=== PATIENT | male | born 1960 | race Hispanic/Latino ===

== ENCOUNTER 2016-08-13 03:42 | Emergency (ER) | payer OTHER ==
[2016-08-13 04:25] LABS: ABSOLUTE BASOPHIL COUNT 0 /CUMM (0.0-0.2); ABSOLUTE EOSINOPHIL COUNT 0 /CUMM (0.0-0.7); ABSOLUTE GRANULOCYTE CT 6.1 /CUMM (1.4-6.5); ABSOLUTE LYMPH COUNT 0.5 /CUMM (1.2-3.4); ABSOLUTE MONOCYTE COUNT 0.1 /CUMM (0.10-0.60); BASOPHIL % 0.1 % (0.0-2.0); EOSINOPHIL % 0.2 % (0-5); GRANULOCYTE % 91.8 % (42.2-75.2); HEMATOCRIT 37.2 % (42-52); MEAN CORPUSCULAR HGB 32.5 PG (27.0-31.0); MEAN CORPUSCULAR HGB CONC 34.7 G/DL (33.0-37.0); MEAN CORPUSCULAR VOLUME 93.8 FL (80.0-94.0); MEAN PLATELET VOLUME 6.3 FL (7.4-10.4); PLATELET COUNT 185 /CUMM (130-400); RBC DISTRIBUTION WIDTH 12.7 % (11.5-14.5); RED BLOOD CELL CT 3.97 /CUMM (4.70-6.10); WHITE BLOOD CELL COUNT 6.7 /CUMM (4.8-10.8)
--- NOTE | 2016-08-13 04:45 | ED GI/GU/ABDOMINAL COMPLAINT ---
History of Present Illness General Chief Complaint: Abdominal Pain/Flank Pain Stated Complaint: ABD PAIN Source: patient Exam Limitations: no limitations Vital Signs & Intake/Output Vital Signs & Intake/Output Vital Signs Date Time Temp Pulse Resp B/P B/P Pulse O2 O2 Flow FiO2 Mean Ox Delivery Rate 08/13 1141 99.1 106 14 148/84 96 Room Air 08/13 0829 99.2 99 14 98/55 97 Room Air 08/13 0541 97.3 89 18 140/84 96 08/13 0355 96.2 96 18 155/80 99 Allergies Coded Allergies: No Known Allergies (08/13/16) Reconcile Medications Metformin HCl 500 MG TABLET 500 MG PO BID DIABETES (Reported) Triage Note: PT TO ED C/O ABDOMINAL PAIN, NAUSEA AND DIARRHEA SINCE 9 PM AFTER EATING SPICY CHICKEN AND 9 BEERS. PT DENIES CP, SOB, FEVER AND CHILLS Triage Nurses Notes Reviewed? yes Onset: Gradual Duration: hour(s):, waxing and waning Timing: recent history Quality/Severity: cramping Location: generalized abdomen Radiation: no radiation Activities at Onset: none Prior Abdominal Problems: none Modifying Factors: Worsens With: defecating, vomiting. Associated Symptoms: abdominal pain HPI: 56-year-old gentleman history of diabetes presents with 3-4 hours of diffuse crampy abdominal pain nausea vomiting and diarrhea. He states that prior to going to bed at approximately 9 or 10:00, he drank 9 beers and had a large amount of spicy chicken wings. At 2:00 this morning he developed nauesea for diarrhea. He states that he had has had 4 diarrheal stools since he awoke. Similarly, he has had 3-4 episodes of vomiting. He has no fever chills shortness of breath phlegm production. He is otherwise well and has no other concerns. (PABLO CHAUHAN,HANNY Peñaloza) Past History Travel History Traveled to [place] past 21 day No Medical History Any Pertinent Medical History? see below for history Surgical History Surgical History: none Psychosocial History What is your primary language [place] Tobacco Use: Never used Family History Hx Contributory? No (PABLO CHAUHAN,HANNY Peñaloza) Review of Systems Review of Systems Constitutional: Reports: no symptoms. EENTM: Reports: no symptoms. Respiratory: Reports: no symptoms. Cardiovascular: Reports: no symptoms. GI: Reports: no symptoms. Genitourinary: Reports: no symptoms. Musculoskeletal: Reports: no symptoms. Skin: Reports: no symptoms. Neurological/Psychological: Reports: no symptoms. Hematologic/Endocrine: Reports: no symptoms. Immunologic/Allergic: Reports: no symptoms. All Other Systems: Reviewed and Negative (PABLO CHAUHAN,HANNY Peñaloza) Physical Exam Physical Exam General Appearance: well developed/nourished, no apparent distress Head: atraumatic, normal appearance, active bleeding Eyes: Bilateral: normal appearance. Ears, Nose, Throat, Mouth: hearing grossly normal, dental injury, moist mucous membrane Neck: normal inspection, supple, full range of motion Respiratory: normal breath sounds, chest non-tender, no respiratory distress Gastrointestinal: normal bowel sounds, soft, non-tender, no organomegaly Back: normal inspection, normal range of motion Core Measures ACS in differential dx? No Severe Sepsis Present: No Septic Shock Present: No (PABLO CHAUHAN,HANNY Peñaloza) Progress Differential Diagnosis: reflux versus gastritis versus food poisoning Plan of Care: Orders Procedure Date/time Status HEPATIC FUNCTION PANEL 08/13 0645 Complete BASIC METABOLIC PANEL 08/13 0645 Complete ETHANOL 08/13 0403 Complete TROPONIN LEVEL 08/13 0346 Complete LIPASE 08/13 0346 Complete HEPATIC FUNCTION PANEL 08/13 0346 Complete CBC WITHOUT DIFFERENTIAL 08/13 0346 Complete BASIC METABOLIC PANEL 08/13 0346 Complete AMYLASE 08/13 0346 Complete EKG 08/13 0346 Active Laboratory Tests 08/13/16 0656: Anion Gap 14, Estimated GFR > 60, BUN/Creatinine Ratio 16.7, Glucose 143 H, Calcium 7.5 L, Total Bilirubin 2.1 H, Direct Bilirubin 1.7 H, AST 377 H, ALT 225 H, Alkaline Phosphatase 81, Total Protein 5.7 L, Albumin 3.1 L 08/13/16 0430: Anion Gap 13, Estimated GFR > 60, BUN/Creatinine Ratio 20.0, Glucose 128 H, Calcium 7.8 L, Total Bilirubin 1.7 H, Direct Bilirubin 1.3 H, AST 266 H, ALT 149 H, Alkaline Phosphatase 85, Troponin I < 0.01, Total Protein 6.0 L, Albumin 3.3 L, Amylase 102, Lipase 182, Serum Alcohol 73.0 08/13/16 0403: CBC w Diff MAN DIFF ORDERED, RBC 3.97 L, MCV 93.8, MCH 32.5 H, RDW 12.7, MPV 6.3 L, Gran % 91.8 H, Lymphocytes % 7.1 L, Monocytes % 0.8 L, Eosinophils % 0.2, Basophils % 0.1, Absolute Granulocytes 6.1, Segmented Neutrophils 82 H, Band Neutrophils 2, Absolute Lymphocytes 0.5 L, Lymphocytes 16 L, Absolute Monocytes 0.1 L, Absolute Eosinophils 0, Absolute Basophils 0, Platelet Estimate ADEQUATE, Polychromasia 1+, Ovalocytes FEW, PUBS MCHC 34.7, Fld Total RBCs Counted 100 08/13/16 0358: Serum Alcohol Cancelled Diagnostic Imaging: Viewed by Me: CT Scan. Discussed w/RAD: CT Scan. Radiology Impression: abd/pelvic ct.... correlate with cholecystitis Initial ED EKG: normal axis, normal intervals, normal p-waves, normal QRS complex, normal sinus rhythm Hand-Off Endorsed To: NICKOLAS DORMAN MD Endorsed Time: 0700 Pending: other (re-evaluation), ultrasound Comments: PATIENT: LUIS ANGEL HARKINS PRESENT AGE: 56 PATIENT ACCOUNT NO: [id number] : 61 LOCATION: [facility] ORDERING PHYSICIAN: HANNY OTT MD SERVICE DATE: 08/13/16 EXAM TYPE: CAT - CT ABD & PELVIS W IV CONTRAST EXAMINATION: CT ABDOMEN AND PELVIS WITH CONTRAST CLINICAL INFORMATION: Abdominal pain with elevated LFTs. COMPARISON: None available. TECHNIQUE: Multidetector volumetric imaging was performed of the abdomen and pelvis before and after the IV administration of 32 mL of Optiray 320 intravenous contrast. Sagittal and coronal reformatted images were obtained on the technologist's workstation. FINDINGS: The lung bases are clear. Liver attenuation is heterogeneous and nonspecific. There is no nodular liver contour and no discrete intrahepatic lesions are identified. The spleen, adrenal glands, and pancreas are normal. Cholelithiasis. Gallbladder wall appears slightly thickened. Correlation with ultrasound recommended to assess for signs of acute cholecystitis. The kidneys exhibit symmetric nephrograms without evidence of hydronephrosis or nephrolithiasis. No focal renal lesions. Nonspecific perinephric stranding bilaterally. No radiopaque calculi and no hydroureteronephrosis. The large and small bowel are normal in caliber without evidence of mechanical obstruction. No focal inflammatory changes adjacent to the large or the small bowel. The appendix is normal. There is no free air and there is no intra-abdominal free fluid. No mesenteric or retroperitoneal adenopathy. The pelvic viscera are normal. No pelvic adenopathy. No free fluid within the pelvis. There are no acute osseous abnormalities. No significant soft tissue abnormality. IMPRESSION: - Cholelithiasis. Gallbladder wall appears slightly thickened. Correlation with ultrasound recommended to assess for signs of acute cholecystitis. The common bile duct and intrahepatic bile ducts are not enlarged. - Liver attenuation is heterogeneous and nonspecific. There is no nodular liver contour and no discrete intrahepatic lesions are identified. - Nonspecific perinephric stranding bilaterally. No radiopaque calculi and no hydroureteronephrosis. DICTATED BY: NICKOLAS CHAVEZ MD DATE/TIME DICTATED:08/13/16600 SHIP FITTER:BRITTANY DATE/TIME TRANSCRIBED:08/13/16600 CONFIDENTIAL, DO NOT COPY WITHOUT APPROPRIATE AUTHORIZATION. <Electronically signed in Other Vendor System> SIGNED BY: NICKOLAS CHAVEZ MD 08/13/16610 (PABLO CHAUHAN,HANNY Peñaloza) Radiology Impression: PATIENT: LUIS ANGEL HARKINS PRESENT AGE: 56 PATIENT ACCOUNT NO: [id number] : 62 LOCATION: [facility] ORDERING PHYSICIAN: HANNY OTT MD SERVICE DATE: 08/13/16 EXAM TYPE: US - US- LIMITED ABDOMEN EXAMINATION: US ABDOMEN LIMITED CLINICAL INFORMATION: Abnormal LFTs. COMPARISON: Earlier CT scan same day TECHNIQUE: Real-time imaging of the right upper quadrant abdominal viscera. FINDINGS: PANCREAS: Not well-visualized. LIVER: Diffuse increased echogenicity. No focal lesion or biliary dilatation. GALLBLADDER: Gallbladder wall is thickened with stones. There is small amount of pericholecystic fluid. Mild distention. Mild vascularity within the wall. Gallbladder wall measures up to 11 mm COMMON BILE DUCT: Not demonstrated RIGHT KIDNEY: Normal. No hydronephrosis. No renal calculi or focal parenchymal lesions. The kidney measures 10.8 cm in maximum dimension. FREE FLUID: None. IMPRESSION: Gallbladder wall thickening with stones. Appearance is suspicious for acute cholecystitis. Correlate clinically. Pancreas and biliary tree not demonstrated. DICTATED BY: FAWN SIERRA MD DATE/TIME DICTATED:08/13/16826 SHIP FITTER:HEARN DATE/TIME TRANSCRIBED:08/13/16826 CONFIDENTIAL, DO NOT COPY WITHOUT APPROPRIATE AUTHORIZATION. <Electronically signed in Other Vendor System> SIGNED BY: FAWN SIERRA MD 08/13/16 0835 Comments: 08/13/2016 12:38:01 PM surgical PA awaiting feedback from surgeon regarding patient's disposition. 08/13/2016 10:18:37 AM patient signed out to me by Dr. Ott. Ultrasound suggestive of acute cholecystitis. I am paging both surgery and GI given the patient's elevation in liver enzymes and bilirubin levels. 08/13/2016 10:50:22 AM I have discussed this patient's case with Dr. Tai who feels that the patient's elevations in bilirubin and transaminases are likely alcohol induced. However he recommends an MRCP. He feels that this is unlikely to be a common duct stone. I have just discussed this patient's case with Dr. Willson who is scrubbed in the operating room. I've also discussed this patient's case with the surgical PA. Rocephin and Flagyl has been ordered. At this point the patient is comfortable and preparing to go to MRI. 08/13/2016 2:42:55 PM according to the surgical PA, Dr. Willson does not feel that this patient has acute cholecystitis and instead attributes the changes to alcoholism. Although I still feel the patient could have cholecystitis based on his presentation and imaging studies, the patient has refused to be admitted. Despite a lengthy discussion with this patient via a aerobics teacher regarding the possibility of cholecystitis peritonitis gallbladder rupture sepsis and other severe complications, and after notifying this patient of his low sodium level, he is decided to leave the emergency department in order to return back to [place] and continue working. I believe he is capable of medical decision making at this time and will be signed out AGAINST MEDICAL ADVICE. I'll call him with antibiotics and advised that he free water restrict until follow-up. (ERVIN CHAUHAN,NICKOLAS Murray) Departure Departure Condition: Stable Departure Forms: Customer Survey General Discharge Information (PABLO CHAUHAN,HANNY Peñaloza) Departure Disposition: LEFT AGAINST MEDICAL ADVICE Clinical Impression Primary Impression: Cholecystitis, acute Secondary Impressions: Hyponatremia Additional Instructions: Cipro and Flagyl as prescribed. Follow up with a physician tomorrow for reevaluation. Your leaving AGAINST MEDICAL ADVICE, you may have an infected gallbladder that could result in an overwhelming infection and . In addition you have a low sodium level which places your risk of weakness seizures and altered mental status. In addition to taking the antibiotics prescribed, restrict your fluid intake to 1 L per day. Return immediately to the emergency department if any concerns or sudden worsening. Please note that there might be incidental findings in your evaluation that are unrelated to the current emergency department visit. Please notify your primary care doctor about this emergency department visit in order to obtain and review all of the testing performed so that these incidental findings can be monitored as needed. If you had an x-ray performed, please understand that some fractures may not be seen on the initial set of x-rays. If your symptoms persist you might need a repeat set of x-rays to check for such a fracture. If you had a laceration evaluated, please understand that foreign bodies such as glass or wood may not be visible to the naked eye or on plain x-rays. If the wound becomes red, swollen, increasingly more painful or if there is any drainage from the wound, please have it reevaluated by a physician for the possibility of a retained foreign body. Thank you for choosing the [facility] Emergency Department for your care. It was a pleasure to serve you today. Nickolas Dorman M.D. [facility] Prescriptions: Current Visit Scripts Ciprofloxacin HCl (Cipro) 1 TAB PO BID #20 TAB Metronidazole (Flagyl) 1 TAB PO Q6 #40 TAB (ERVIN CHAUHAN,NICKOLAS Murray)
[2016-08-13] MEDS ORDERED: METFORMIN HCL500 M3 PO (05:57)
--- NOTE | 2016-08-13 06:11 | CT SCAN REPORT ---
EXAMINATION: CT ABDOMEN AND PELVIS WITH CONTRAST CLINICAL INFORMATION: Abdominal pain with elevated LFTs. COMPARISON: None available. TECHNIQUE: Multidetector volumetric imaging was performed of the abdomen and pelvis before and after the IV administration of 32 mL of Optiray 320 intravenous contrast. Sagittal and coronal reformatted images were obtained on the technologist's workstation. FINDINGS: The lung bases are clear. Liver attenuation is heterogeneous and nonspecific. There is no nodular liver contour and no discrete intrahepatic lesions are identified. The spleen, adrenal glands, and pancreas are normal. Cholelithiasis. Gallbladder wall appears slightly thickened. Correlation with ultrasound recommended to assess for signs of acute cholecystitis. The kidneys exhibit symmetric nephrograms without evidence of hydronephrosis or nephrolithiasis. No focal renal lesions. Nonspecific perinephric stranding bilaterally. No radiopaque calculi and no hydroureteronephrosis. The large and small bowel are normal in caliber without evidence of mechanical obstruction. No focal inflammatory changes adjacent to the large or the small bowel. The appendix is normal. There is no free air and there is no intra-abdominal free fluid. No mesenteric or retroperitoneal adenopathy. The pelvic viscera are normal. No pelvic adenopathy. No free fluid within the pelvis. There are no acute osseous abnormalities. No significant soft tissue abnormality. IMPRESSION: - Cholelithiasis. Gallbladder wall appears slightly thickened. Correlation with ultrasound recommended to assess for signs of acute cholecystitis. The common bile duct and intrahepatic bile ducts are not enlarged. - Liver attenuation is heterogeneous and nonspecific. There is no nodular liver contour and no discrete intrahepatic lesions are identified. - Nonspecific perinephric stranding bilaterally. No radiopaque calculi and no hydroureteronephrosis.
--- NOTE | 2016-08-13 08:35 | ULTRASOUND REPORT ---
EXAMINATION: US ABDOMEN LIMITED CLINICAL INFORMATION: Abnormal LFTs. COMPARISON: Earlier CT scan same day TECHNIQUE: Real-time imaging of the right upper quadrant abdominal viscera. FINDINGS: PANCREAS: Not well-visualized. LIVER: Diffuse increased echogenicity. No focal lesion or biliary dilatation. GALLBLADDER: Gallbladder wall is thickened with stones. There is small amount of pericholecystic fluid. Mild distention. Mild vascularity within the wall. Gallbladder wall measures up to 11 mm COMMON BILE DUCT: Not demonstrated RIGHT KIDNEY: Normal. No hydronephrosis. No renal calculi or focal parenchymal lesions. The kidney measures 10.8 cm in maximum dimension. FREE FLUID: None. IMPRESSION: Gallbladder wall thickening with stones. Appearance is suspicious for acute cholecystitis. Correlate clinically. Pancreas and biliary tree not demonstrated.
[2016-08-13 11:41] VITALS: BP 148/84
--- NOTE | 2016-08-13 12:19 | MRI REPORT ---
EXAMINATION: MR ABDOMEN WITHOUT CONTRAST CLINICAL INFORMATION: Possible cholecystitis. Assess for biliary obstruction. Right upper quadrant pain and elevated LFTs. COMPARISON: Ultrasound and CT same day. TECHNIQUE: MR abdomen without contrast was obtained using routine sequences. MRCP. FINDINGS: It is reported that the patient could not tolerate the exam and it was curtailed without MRCP. On the submitted coronal, sagittal and axial T2 haste images, there is no gross biliary dilatation or evidence for choledocholithiasis. The CBD only measures 2 to 3 mm. Intrahepatic ductal radicals appear normal. There are trace pleural effusions at both bases. The gallbladder is acutely inflamed with tiny stones consistent with acute cholecystitis. There is minor nonspecific stranding about the retroperitoneum centered around the perinephric space without hydronephrosis. Pancreas and pancreatic duct normal. IMPRESSION: Limited curtailed exam as above demonstrating acute cholecystitis changes without definite biliary dilatation or choledocholithiasis.
--- NOTE | 2016-08-13 14:19 | Cons- Gastroenterology ---
General Information and HPI Consulting Request Date of Consult: 08/13/16 Requested By: Dr. Richar Dorman Reason for Consult: Increased LFTs, RUQ abdominal pain. US and ct scan showing cholecystitis. Source of Information: patient, old records Exam Limitations: no limitations History of Present Illness: Mr. Foster is a 56 year old male with a history of DM who presented to last night with complaints of RUQ pain that began last night. The patient states he had a mid epigastric abdominal pain which radiated to the right side and it came on acutely last night. He notes that he did drink about 9 beers last night, but it is unclear if he started drinking because of the pain or if the pain started after he began drinking. The pain was associated with 1 episode of bilious vomiting without hematemesis. He denies any burning epigastric pain or any heartburn and he has not had pain similar to this in the past. He denies having any fevers or chills. He reports having normal bowel movements without any bright blood per rectum, melena, diarrhea, constipation, or magali-colored stool. He is also without any changes in the color of his urine. On presentation to the emergency room he was afebrile and hemodynamically stable. He was noted to have moderately elevated liver function tests for which a CAT scan was performed which showed changes consistent with cholecystitis without biliary ductal dilatation. A follow-up ultrasound also suggested cholecystitis also without biliary ductal dilatation. Since his bilirubin was elevated an MRCP was also obtained which was limited as she did not tolerate it, but no obvious biliary ductal dilatation or choledocholithiasis was appreciated. The MR also showed changes of cholecystitis though. He was started on IV antibiotics and was also given IV antiemetics and he notes that his pain is now completely resolved. He has remained afebrile and hemodynamically stable since arrival to the emergency room. A surgical consult is pending. Allergies/Medications Allergies: Coded Allergies: No Known Allergies (08/13/16) Home Med List: Ciprofloxacin HCl (Cipro) 500 MG TABLET 1 TAB PO BID GALLBLADDER Metformin HCl 500 MG TABLET 500 MG PO BID DIABETES (Reported) Metronidazole (Flagyl) 500 MG TABLET 1 TAB PO Q6 GALLBLADDER Current Medications: Current Medications Sig/Puneet Start time Last Medication Dose Route Stop Time Status Admin Ceftriaxone Sodium 0 .STK-MED ONE 08/13 1045 DC .ROUTE Ceftriaxone Sodium 1,000 MG ONCE ONE 08/13 1030 DC 05/ IV 08/13 1031 1044 Diphenoxylate HCl/ 2.5 MG ONCE ONE 08/13 0500 DC 05 Atropine PO 08/13 0501 0456 Famotidine 0 .STK-MED ONE 08/13 0404 DC IV Famotidine 20 MG ONCE ONE 08/13 0400 DC 05/ IV 08/13 0401 0408 Metoclopramide HCl 0 .STK-MED ONE 08/13 0735 DC .ROUTE Metoclopramide HCl 10 MG ONCE ONE 08/13 0730 DC 08/13 IV 08/13 0731 0733 Metronidazole 500 MG ONCE ONE 08/13 1030 DC 08/13 N/A 1 UNIT IV 08/13 1129 1044 Ondansetron HCl 0 .STK-MED ONE 08/13 0404 DC .ROUTE Ondansetron HCl 4 MG ONCE ONE 08/13 0400 DC / IV 08/13 0401 0408 Promethazine HCl 0 .STK-MED ONE 08/13 0454 DC .ROUTE Promethazine HCl 25 MG ONCE ONE 08/13 0445 DC 08/13 IV 08/13 0446 0456 Sodium Chloride 1,000 ML BOLUS ONE 08/13 0700 DC 05/ IV 08/13 0759 0723 Sodium Chloride 1,000 ML BOLUS ONE 08/13 0530 DC 05/ IV 08/13 0629 0541 Sodium Chloride 1,000 ML BOLUS ONE 08/13 0500 DC 05/ IV 05/ 0559 0457 Sodium Chloride 1,000 ML BOLUS ONE 08/13 0400 DC 08/13 IV 08/13 0459 0408 Past History Travel History Traveled to [place] past 21 day No Medical History Endocrine: diabetes Surgical History Surgical History: 1 Review of Systems Review of Systems Constitutional: Denies: fever, malaise, weakness, unexplained weight loss. EENTM: Denies: no symptoms. Cardiovascular: Denies: no symptoms. Respiratory: Denies: no symptoms. GI: Reports: see HPI. Genitourinary: Denies: no symptoms. Musculoskeletal: Denies: no symptoms. Skin: Denies: no symptoms, jaundice. Neurological/Psychological: Denies: no symptoms. Hematologic/Endocrine: Denies: no symptoms. Immunologic/Allergic: Denies: no symptoms. All Other Systems: Reviewed and Negative Exam & Diagnostic Data Vital Signs and I&O Vital Signs Date Time Temp Pulse Resp B/P B/P Pulse O2 O2 Flow FiO2 Mean Ox Delivery Rate 08/13 1141 99.1 106 14 148/84 96 Room Air 08/13 0829 99.2 99 14 98/55 97 Room Air 08/13 0541 97.3 89 18 140/84 96 08/13 0355 96.2 96 18 155/80 99 Intake & Output 08/13 04008/12 04008/11 0400 Intake Total 3000 Output Total Balance 3000 Intake, IV 3000 Physical Exam General Appearance: well developed/nourished, no apparent distress, alert, comfortable Head: atraumatic, normal appearance Eyes: Bilateral: normal appearance. Ears, Nose, Throat: normal pharynx, normal ENT inspection, hearing grossly normal Neck: normal inspection, supple, full range of motion Respiratory: normal breath sounds, chest non-tender, no respiratory distress Cardiovascular: regular rate/rhythm Gastrointestinal: normal bowel sounds, soft, non-tender, negative Caballero's sign and no reproducible abdominal pain on physical exam Rectal: deferred Back: normal inspection, normal range of motion Extremities: normal inspection, normal capillary refill, normal range of motion Neurologic/Psych: no motor/sensory deficits, awake, alert, oriented x 3 Skin: intact, normal color, warm/dry Results Pertinent Lab Results: Laboratory Tests 08/13 08/13 08/13 0656 0430 0403 Chemistry Sodium (137 - 145 mmol/L) 128 L 128 L Potassium (3.5 - 5.1 mmol/L) 3.4 L 3.2 L Chloride (98 - 107 mmol/L) 95 L 91 L Carbon Dioxide (22 - 30 mmol/L) 19 L 24 Anion Gap (5 - 16) 14 13 BUN (9 - 20 mg/dL) 10 12 Creatinine (0.7 - 1.2 mg/dL) 0.6 L 0.6 L Estimated GFR (>60 ml/min) > 60 > 60 BUN/Creatinine Ratio (7 - 25 %) 16.7 20.0 Glucose (65 - 99 mg/dL) 143 H 128 H Calcium (8.4 - 10.2 mg/dL) 7.5 L 7.8 L Total Bilirubin (0.2 - 1.3 mg/dL) 2.1 H 1.7 H Direct Bilirubin (< 0.4 mg/dL) 1.7 H 1.3 H AST (17 - 59 U/L) 377 H 266 H ALT (21 - 72 U/L) 225 H 149 H Alkaline Phosphatase (< 127 U/L) 81 85 Troponin I (<0.11 ng/ml) < 0.01 Total Protein (6.3 - 8.2 g/dL) 5.7 L 6.0 L Albumin (3.5 - 5.0 g/dL) 3.1 L 3.3 L Amylase (30 - 110 U/L) 102 Lipase (23 - 300 U/L) 182 Hematology CBC w Diff MAN DIFF ORDERED WBC (4.8 - 10.8 /CUMM) 6.7 RBC (4.70 - 6.10 /CUMM) 3.97 L Hgb (14.0 - 18.0 G/DL) 12.9 L Hct (42 - 52 %) 37.2 L MCV (80.0 - 94.0 FL) 93.8 MCH (27.0 - 31.0 PG) 32.5 H RDW (11.5 - 14.5 %) 12.7 Plt Count (130 - 400 /CUMM) 185 MPV (7.4 - 10.4 FL) 6.3 L Gran % (42.2 - 75.2 %) 91.8 H Lymphocytes % (20.5 - 51.1 %) 7.1 L Monocytes % (1.7 - 9.3 %) 0.8 L Eosinophils % (0 - 5 %) 0.2 Basophils % (0.0 - 2.0 %) 0.1 Absolute Granulocytes (1.4 - 6.5 /CUMM) 6.1 Segmented Neutrophils (42.2 - 75.2 %) 82 H Band Neutrophils (0.0 - 5.0 %) 2 Absolute Lymphocytes (1.2 - 3.4 /CUMM) 0.5 L Lymphocytes (20.5 - 51.1 %) 16 L Absolute Monocytes (0.10 - 0.60 /CUMM) 0.1 L Absolute Eosinophils (0.0 - 0.7 /CUMM) 0 Absolute Basophils (0.0 - 0.2 /CUMM) 0 Platelet Estimate (ADEQUATE) ADEQUATE Polychromasia 1+ Ovalocytes FEW PUBS MCHC (33.0 - 37.0 G/DL) 34.7 Other Body Source Fld Total RBCs Counted (%) 100 Toxicology Serum Alcohol (<10 MG/DL) 73.0 08/13 0358 Toxicology Serum Alcohol Cancelled Imaging/Other Studies: SERVICE DATE: 08/13/16 EXAM TYPE: CAT - CT ABD & PELVIS W IV CONTRAST EXAMINATION: CT ABDOMEN AND PELVIS WITH CONTRAST CLINICAL INFORMATION: Abdominal pain with elevated LFTs. COMPARISON: None available. TECHNIQUE: Multidetector volumetric imaging was performed of the abdomen and pelvis before and after the IV administration of 32 mL of Optiray 320 intravenous contrast. Sagittal and coronal reformatted images were obtained on the technologist's workstation. FINDINGS: The lung bases are clear. Liver attenuation is heterogeneous and nonspecific. There is no nodular liver contour and no discrete intrahepatic lesions are identified. The spleen, adrenal glands, and pancreas are normal. Cholelithiasis. Gallbladder wall appears slightly thickened. Correlation with ultrasound recommended to assess for signs of acute cholecystitis. The kidneys exhibit symmetric nephrograms without evidence of hydronephrosis or nephrolithiasis. No focal renal lesions. Nonspecific perinephric stranding bilaterally. No radiopaque calculi and no hydroureteronephrosis. The large and small bowel are normal in caliber without evidence of mechanical obstruction. No focal inflammatory changes adjacent to the large or the small bowel. The appendix is normal. There is no free air and there is no intra-abdominal free fluid. No mesenteric or retroperitoneal adenopathy. The pelvic viscera are normal. No pelvic adenopathy. No free fluid within the pelvis. There are no acute osseous abnormalities. No significant soft tissue abnormality. IMPRESSION: - Cholelithiasis. Gallbladder wall appears slightly thickened. Correlation with ultrasound recommended to assess for signs of acute cholecystitis. The common bile duct and intrahepatic bile ducts are not enlarged. - Liver attenuation is heterogeneous and nonspecific. There is no nodular liver contour and no discrete intrahepatic lesions are identified. - Nonspecific perinephric stranding bilaterally. No radiopaque calculi and no hydroureteronephrosis. SERVICE DATE: 08/13/16 EXAM TYPE: US - US-LIMITED ABDOMEN EXAMINATION: US ABDOMEN LIMITED CLINICAL INFORMATION: Abnormal LFTs. COMPARISON: Earlier CT scan same day TECHNIQUE: Real-time imaging of the right upper quadrant abdominal viscera. FINDINGS: PANCREAS: Not well-visualized. LIVER: Diffuse increased echogenicity. No focal lesion or biliary dilatation. GALLBLADDER: Gallbladder wall is thickened with stones. There is small amount of pericholecystic fluid. Mild distention. Mild vascularity within the wall. Gallbladder wall measures up to 11 mm COMMON BILE DUCT: Not demonstrated RIGHT KIDNEY: Normal. No hydronephrosis. No renal calculi or focal parenchymal lesions. The kidney measures 10.8 cm in maximum dimension. FREE FLUID: None. IMPRESSION: Gallbladder wall thickening with stones. Appearance is suspicious for acute cholecystitis. Correlate clinically. Pancreas and biliary tree not demonstrated. SERVICE DATE: 08/13/16 EXAM TYPE: MRI - MRI-ABDOMEN EXAMINATION: MR ABDOMEN WITHOUT CONTRAST CLINICAL INFORMATION: Possible cholecystitis. Assess for biliary obstruction. Right upper quadrant pain and elevated LFTs. COMPARISON: Ultrasound and CT same day. TECHNIQUE: MR abdomen without contrast was obtained using routine sequences. MRCP. FINDINGS: It is reported that the patient could not tolerate the exam and it was curtailed without MRCP. On the submitted coronal, sagittal and axial T2 haste images, there is no gross biliary dilatation or evidence for choledocholithiasis. The CBD only measures 2 to 3 mm. Intrahepatic ductal radicals appear normal. There are trace pleural effusions at both bases. The gallbladder is acutely inflamed with tiny stones consistent with acute cholecystitis. There is minor nonspecific stranding about the retroperitoneum centered around the perinephric space without hydronephrosis. Pancreas and pancreatic duct normal. IMPRESSION: Limited curtailed exam as above demonstrating acute cholecystitis changes without definite biliary dilatation or choledocholithiasis. Assessment/Plan Assessment/Recommendations: Assessment: Mr. Foster a 56-year-old male who presents with right upper quadrant pain and has had 3 different imaging modalities all showing evidence of cholecystitis which is likely the cause of the patient's symptoms. His LFTs are moderately elevated, however I suspect this is secondary to alcohol as he reports having about 9 beers last night before going to sleep and the AST to ALT ratio is consistent with alcohol. His bilirubin is mildly elevated which raises the possibility of choledocholithiasis, but this is unlikely considering his alkaline phosphatase is normal and his ultrasound and CAT scan did not show any biliary ductal dilatation and he also had an MRCP which did not show any obvious choledocholithiasis albeit this exam was somewhat limited as he was unable to tolerate the MRI. Regardless, as he is afebrile and has an alternative explanation for his increased LFTs (ie. etoh) would recommend pursuing a cholecystecomy as per the surgical team with an intra-operative cholangiogram to defnitively rule out any choledocholithiasis. It should also be noted that it would be unusual for him to bumb his LFTs after just one night of drinking 9 beers and it is therefore likely that he abuses etoh and all of his symptoms ( including his pain which has now completely resolved) may be from alcoholic hepatitis, but the ct scan, US and MR findings all showing cholecystitis should still be addressed. Recommendations: 1. Follow-up surgical consult recommendations and consider a HIDA scan to confirm the diagnosis of acute cholecystitis considering his PE is now entirely benign in spite of the radiographic findings. 2. Would continue IV antibiotics for cholecystitis for now 3. Follow daily LFTs and would check a viral hepatitis profile if one has not been obtained. 4. Monitor for signs of alcohol withdrawal and treat with benzodiazepines as needed. 5. If there are no plans for urgent surgical intervention would advance diet as tolerated. 6. Administer analgesia as needed. 7. Notify GI for signs of cholangitis such as worsening right upper quadrant pain associated with fevers and worsening jaundice. 8. Would recommend performing an intraoperative cholangiogram if and when a cholecystectomy is performed. I will continue to follow this patient and make further recommendations based on his clinical course, repeat blood work, further imaging if obtained (ie. HIDA) and surgerys recommendations. Consult Acknowledgment - Thank you for your consult request.
[2016-08-13] MEDS ORDERED: CIPRO500 M1 PO (14:48)
[2016-08-13] MEDS ORDERED: FLAGYL500 MG PO (14:48)
== END 2016-08-13 15:11 | disposition left against medical advice (07) ==
LOC: ERH 03:42
PROVIDERS: Pediatrics
DX: K81.0 Acute cholecystitis (principal); E87.1 Hypo-osmolality and hyponatremia; R11.2 Nausea with vomiting, unspecified; R19.7 Diarrhea, unspecified
CPT/HCPCS: 74181; 74177; 93005; 93010; 96361; 96374; 96375; 99291; G0480; J0696; J2405; J2550; J2765